=== PATIENT | male | born 1995 | race American Indian/Alaskan Native ===

== ENCOUNTER 2016-08-14 05:32 | Emergency (ER) | payer SELFPAY ==
[2016-08-14 05:44] VITALS: BMI 25.0
[2016-08-14 05:56] VITALS: BP 140/88; PULSE 70; RESP 18; TEMP 98.6; O2SAT 100
--- NOTE | 2016-08-14 05:57 | ED PDOC ---
Arrival/HPI - General Chief Complaint: Back Pain Time Seen by Provider: 08/14/16 05:43 Historian: Patient - History of Present Illness Narrative History of Present Illness (Text): 08/14/16 05:54 Herlinda Messina is a 20 year old male, with no significant past medical history, presents to the emergency department for evaluation of 3 month duration of left lower back pain. States that pain is worse with movement and lifting objects. Denies fever, chills, headache, dizziness, cough, abdominal pain, nausea, vomiting, urinary symptoms, or any other complaints at this time. Time/Duration: Other (3 months ) Symptom Onset: Gradual Symptom Course: Unchanged Severity Level: Mild Past Medical History - Provider Review Nursing Documentation Reviewed: Yes - Infectious Disease Hx of Infectious Diseases: None - Psychiatric Hx Substance Use: No - Anesthesia Hx Anesthesia: No Family/Social History - Physician Review Nursing Documentation Reviewed: Yes Family/Social History: No Known Family HX Smoking Status: Never Smoked Hx Alcohol Use: Yes Frequency of alcohol use: Socially Hx Substance Use: No Allergies/Home Meds Allergies/Adverse Reactions: Allergies No Known Allergies Allergy (Verified 08/14/16 05:43) Review of Systems - Physician Review All systems were reviewed & negative as marked: Yes - Review of Systems Constitutional: Normal. absent: Fatigue Respiratory: Normal. absent: SOB, Cough, Sputum Cardiovascular: Normal. absent: Chest Pain, Palpitations Gastrointestinal: Normal. absent: Abdominal Pain, Diarrhea, Nausea, Vomiting Genitourinary Male: Normal. absent: Dysuria, Frequency Musculoskeletal: Back Pain (left lower back pain ) Neurological: Normal. absent: Headache, Dizziness Psychiatric: Normal Physical Exam Vital Signs Temp Pulse Resp BP Pulse Ox 08/14/16 05:56 98.6 F 70 18 140/88 100 Temperature: Afebrile Blood Pressure: Normal Pulse: Regular Respiratory Rate: Normal Appearance: Positive for: Well-Appearing, Non-Toxic, Comfortable Pain Distress: None Mental Status: Positive for: Alert and Oriented X 3 - Systems Exam Head: Present: Atraumatic, Normocephalic Pupils: Present: PERRL Conjunctiva: Present: Normal Mouth: Present: Moist Mucous Membranes Respiratory/Chest: Present: Clear to Auscultation, Good Air Exchange. No: Respiratory Distress, Accessory Muscle Use Abdomen: Present: Normal Bowel Sounds. No: Tenderness, Distention, Peritoneal Signs Back: Present: Normal Inspection. No: CVA Tenderness, Midline Tenderness, Paraspinal Tenderness Neurological: Present: GCS=15, CN II-XII Intact, Speech Normal, Motor Func Grossly Intact, Normal Sensory Function Skin: Present: Warm, Dry, Normal Color. No: Rashes Psychiatric: Present: Alert, Oriented x 3, Normal Insight, Normal Concentration Medical Decision Making ED Course and Treatment: 08/14/16 05:57 Impression: A 20 year old male who presents to emergency department complaining of 3 month duration of left lower back pain. Differential Diagnosis include but are not limited to: muscular pain vs pyelonephritis Plan: -- Toradol -- X-ray LS -- Urinalysis -- Reassess and disposition Progress Notes: 08/14/16 07:00 XR is unremarkable. Urine shows minimal RBCs but no WBC with no urine symptoms. Doubt urinary source or stone (patient has had symptoms for three months). Patient reports feeling much better - will treat for muscular pain on nsaid, muscle relaxant, and analgesic. - Lab Interpretations Lab Results: Lab Results 08/14/16 05:50: Urine Color Yellow, Urine Appearance Sl cloudy, Urine pH 6.5, Ur Specific [place] >= 1.030, Urine Protein Trace H, Urine Glucose (UA) Negative , Urine Ketones Negative, Urine Blood Trace-intact H, Urine Nitrate Negative, Urine Bilirubin Negative, Urine Urobilinogen 1.0 H, Ur Leukocyte Esterase Negative, Urine RBC 2 - 5, Urine WBC 1 - 3, Ur Epithelial Cells 0 - 2 - RAD Interpretation Radiology Orders: 08/14/16 05:52 LS SPINE WITH OBL > 18 YRS OLD [RAD] Stat - Medication Orders Current Medication Orders: Discontinued Medications Ketorolac Tromethamine (Toradol) 60 mg IM STAT STA Stop: 08/14/16 05:53 Last Admin: 08/14/16 06:29 Dose: 60 mg - Scribe Statement The provider has reviewed the documentation as recorded by the Herminio Duff Provider Attestation: All medical record entries made by the Nandoibtrudy were at my direction and personally dictated by me. I have reviewed the chart and agree that the record accurately reflects my personal performance of the history, physical exam, medical decision making, and the department course for this patient. I have also personally directed, reviewed, and agree with the discharge instructions and disposition. Disposition/Present on Arrival - Present on Arrival Any Indicators Present on Arrival: No History of DVT/PE: No History of Uncontrolled Diabetes: No Urinary Catheter: No History of Decub. Ulcer: No History Surgical Site Infection Following: None - Disposition Have Diagnosis and Disposition been Completed?: Yes Diagnosis: Low back pain Disposition: HOME/ ROUTINE Disposition Time: 07:00 Patient Plan: Discharge Condition: GOOD Discharge Instructions (ExitCare): Acute Low Back Pain (ED) Additional Instructions: Avoid heavy lifting. Take the medications as prescribed. Follow up with primary care. Return to the emergency department if any new concerning symptoms. Prescriptions: Baclofen [Lioresal] 1 cap PO TID PRN #15 tab PRN Reason: Pain, Moderate (4-7) Naproxen [Naprosyn] 500 mg PO BID PRN #20 tab PRN Reason: Pain traMADol [Ultram] 1 tab PO Q8H PRN #10 tab PRN Reason: Pain, Severe (8-10) Ref[place]: [facility] [place] - Follow up with primary Chaka Sanchez DO [Staff Provider] - Follow up with primary
[2016-08-14 06:37] LABS: PH,URINE 6.5 (4.7-8.0); URINE BILIRUBIN NEGATIVE (NEGATIVE); URINE BLOOD TRACE-INTACT (NEGATIVE); URINE GLUCOSE (UA) NEGATIVE (NEGATIVE); URINE KETONE NEGATIVE (NEGATIVE); URINE LEUKOCYTE ESTERASE NEGATIVE Leu/uL (NEGATIVE); URINE PROTEIN TRACE mg/dL (<30 mg/dL)
[2016-08-14 06:39] LABS: URINE APPEARANCE SL CLOUDY (CLEAR); URINE COLOR YELLOW (YELLOW)
[2016-08-14 07:04] LABS: URINE EPITHELIAL CELLS 0 - 2 /hpf (0-5)
--- NOTE | 2016-08-14 09:05 | RAD ---
PROCEDURE: Radiographs of the Lumbar Spine. HISTORY: low back pain COMPARISON: No prior. FINDINGS: BONES: Normal alignment. No listhesis. No fracture. DISC SPACES: Unremarkable. OTHER FINDINGS: None. IMPRESSION: Unremarkable radiographs of the lumbar spine.
== END 2016-08-14 07:21 | disposition home or self-care (01) ==
LOC: ED 05:32
DX: M54.5 Low back pain (principal)
CPT/HCPCS: 72110; 81001; 96372; 99282; J1885